=== PATIENT | male | born 1945 | race Caucasian/White ===

== ENCOUNTER 2016-11-28 12:02 | Emergency (ER) | payer OTHER, MEDICARE, BC ==
[~2016-11-28] VITALS: Ht 167.6 cm; Wt 79.4 kg
[~2016-11-28 12:02] MED LIST: ALLO300T2 PO; CITRTAB7 PO; CO Q100C9 PO; CRAN1000 PO; GLUC750T22 PO; MAGN250T13 PO; OXYC1SOL5 PO; RIVA10 PO; VITA100020 PO; ZOCO40TA PO
[2016-11-28 12:06] VITALS: BP 137/71; PULSE 66; RESP 16; TEMP 97.7; O2SAT 97
--- NOTE | 2016-11-28 12:18 | PD ---
HPI Chief Complaint: Laceration/Skin Injury Time Seen by Provider: 12:18 Travel History International Travel<30 days: No Contact w/Intl Traveler<30days: No Traveled to known affect area: No History of Present Illness HPI 71-year-old male with PMH of gout and OA presents to the ED by private car for evaluation after 5 foot fall from a ladder while working at the [facility] just before arrival. The patient states that the ladder fell to the left, so he grabbed on to the wooden post he was working on and slid to the ground. He states that a 3-4 inch splinter punctured his right forearm. He removed it on scene. He states that he fell to his knees in the grass after landing on his feet. He denies hitting his head or LOC. He has been ambulatory since the accident. On presentation he complains of 2/10 pain in the right forearm. Denies headache, dizziness, chest pain, shortness of breath, abdominal pain, nausea, vomiting, back pain, numbness, tingling, weakness, limitations to range of motion of the extremities. He takes an aspirin daily. NKDA. PFSH Past Medical History Hx Anticoagulant Therapy: Yes (81mg asa) Cancer: No Cardiovascular Problems: Yes (quijano at age 42) Diabetes: No Endocrine: No Genitourinary: No Hepatitis: No Hiatal Hernia: No Immune Disorder: No Musculoskeletal: Yes (ARTHRITIS) Neurologic: No Psychiatric: No Respiratory: No Thyroid Disease: No Past Surgical History Joint Replacement: Yes (bilateral KNEE) Pacemaker: No Social History Tobacco Use: No Substance Use: No Allergies-Medications (Allergen,Severity, Reaction): Coded Allergies: No Known Allergies (Unverified , 11/28/16) Reported Meds & Prescriptions Reported Meds & Active Scripts Active Keflex (Cephalexin) 250 Mg Cap 250 Mg PO Q6H 10 Days Bactrim DS (Sulfamethoxazole-Trimethoprim) 800-160 Mg Tab 1 Tab PO BID Reported Simvastatin 20 Mg Tab 20 Mg PO DAILY Allopurinol 100 Mg Tab 100 Mg PO DAILY Aspirin Low Dose (Aspirin) 81 Mg Chew 81 Mg CHEW DAILY Review of Systems Except as stated in HPI: all other systems reviewed are Neg Physical Exam Narrative GENERAL: Well-nourished, well-developed white male in no acute distress. Sitting upright in the stretcher. SKIN: Warm and dry. There is a 1 cm punture wound on the right anterior forearm , ulnar aspect. There is a subcentimeter puncture wound on the right anterior forearm, radial aspect. No visible FB. There are superficial abrasions of the left elbow. There is a linear superficial abrasion of the right anterior thigh. Well-healed surgical scars on bilateral anterior knees. HEAD: Normocephalic. Atraumatic. No raccoon eyes or long sign. No tenderness to palpation of the skull. No bony step-offs. No malocclusion of the teeth. EYES: No scleral icterus. No injection or drainage. PERRLA. EOMI. ENT: Pearly simpson tympanic membrane is bilaterally. Nasal mucosa is moist. Oropharynx without erythema, edema or exudate. NECK: Supple, trachea midline. No JVD or lymphadenopathy. No midline tenderness to palpation. Patient retains full, active, painless range of motion of the neck. CARDIOVASCULAR: Regular rate and rhythm without murmurs, gallops, or rubs. 2+ DP and radial pulses bilaterally. RESPIRATORY: Breath sounds clear and equal bilaterally. No accessory muscle use. GASTROINTESTINAL: Abdomen soft, non-tender, nondistended. + Bowel sounds MUSCULOSKELETAL: No cyanosis, or edema. Right knee flexes to approximately 35 . Patient states this is his normal. No tenderness to palpation or limitations to range of motion of the joints of the upper and lower extremities bilaterally. NEUROLOGICAL: Awake and alert. Cranial nerves II through XII intact. Motor and sensory grossly within normal limits. 5/5 muscle strength in all muscle groups. Normal speech. BACK: Nontender without obvious deformity. No CVA tenderness. No midline tenderness. Data Data Last Documented VS Vital Signs Date Time Temp Pulse Resp B/P Pulse Ox O2 Delivery O2 Flow Rate FiO2 11/28/16 12:06 97.7 66 16 137/71 97 Orders Forearm (2vws) (11/28/16 12:22) Ice/Cold Pack (11/28/16 12:22) Tetanus/Diphtheria Tox Adult (Tetanus/Di (11/28/16 12:30) Lidocai-Epi 1%-1:100,000 Inj (Xylocaine- (11/28/16 12:30) MDM Medical Decision Making Medical Screen Exam Complete: Yes Emergency Medical Condition: Yes Differential Diagnosis Puncture versus laceration versus abrasion versus foreign body versus other Narrative Course 71-year-old male with PMH of gout and OA presents to the ED by private car for evaluation after 5 foot fall from a ladder just before arrival. The patient states that the ladder fell to the left, so he grabbed on to the wooden post he was working on and slid to the ground. He states that a 3-4 inch splinter punctured his right forearm. He removed it on scene. He states that he fell to his knees in the grass after landing on his feet. He denies hitting his head or LOC. He has been ambulatory since the accident. On presentation he complains of 2/10 pain in the right forearm. Denies headache, dizziness, chest pain, shortness of breath, abdominal pain, nausea, vomiting, back pain, numbness, tingling, weakness, limitations to range of motion of the extremities. Vitals reviewed. Physical exam reveals an alert white male in no acute distress. There are several superficial abrasions over the skin surface. The right forearm has a 1 cm puncture wound on the anterior ulnar aspect and a subcentimeter puncture wound on the anterior radial aspect. Physical exam is otherwise reassuring. X-rays reveal no foreign body or bony injury per radiology read. Wound exploration and foreign body removal was performed. Please see my procedure note for details. The patient's wounds were cleaned and dressed by the nurse. The patient was provided with prescriptions for Bactrim and Keflex. He is instructed to keep the wounds clean, dry and covered , monitor for signs of infection. Rest, ice, elevate the right knee as needed, follow up with the primary care provider. We discussed reasons to return to the ED and signs of infection. The patient indicated understanding of the instructions and is agreeable to the care plan. The patient is stable and discharged home. Procedures Procedure Narrative Wound exploration/FB removal: The area of the laceration was prepped with Betadine. The wound was copiously irrigated and explored. A 1cm x 1mm wooden splinter was removed from the radial aspect wound. A 16 gauge jelco was used to irrigate the wound tract. The wound was irrigated with ~ 1 L NS without evidence of additional foreign body, tendon injury or neurovascular injury. A sterile dressing was applied. The patient was advised to keep the dressing clean and dry. Patient tolerated the procedure well. Diagnosis Primary Impression: Puncture wound of right forearm Qualified Code: S51.831A - Puncture wound of right forearm, initial encounter Additional Impressions: Retained wood splinter History of retained foreign body fully removed Referrals: Primary Care Physician Patient Instructions: General Instructions, Puncture Wound (ED) Additional Instructions: Rest, hydrate. Do not change the dressing for 24 hours. You may shower normally. Do not submerge the wound. No baths, no swimming x 7 days. After bathing pat of wound dry. Allow the wound to air dry for 10-15 minutes. Apply a thin layer of antibiotic ointment and a clean, dry dressing. Take the antibiotics as they are prescribed, even if your symptoms resolve. Utilize [id number] pain medications, as described on the label, as needed. Follow-up with your primary care provider this week. Return to the ED for any urgent or emergent medical condition. Med/Other Pt SpecificInfo: Prescription(s) given Scripts Cephalexin (Keflex)250 Mg [id number] Mg PO Q6H 10 Days Ref 0 Prov:Wood Nair MD 11/28/16 Sulfamethoxazole-Trimethoprim (Bactrim DS)800-160 Mg Tab1 Tab PO BID #14 TAB Ref 0 Prov:Wood Nair MD 11/28/16 Disposition: 01 DISCHARGE HOME Condition: Stable Sonal Smallwood Nov 28, 2016 12:18
[2016-11-28] MEDS ORDERED: SIMV20TA PO (12:19)
[2016-11-28] MEDS ORDERED: ASPI81CH37 CHEW (12:19)
[2016-11-28] MEDS ORDERED: ALLO100T PO (12:19)
[2016-11-28] MEDS ORDERED: TETANUS/DIPHTHERIA TOXOID ADULT 0.5 ML VIAL IM ONE (12:30)
[2016-11-28] MEDS ORDERED: LIDOCAINE 1%/EPINEPHrine 1:100,000 SOLN 20 ML VIAL INFIL ONE (12:30)
--- NOTE | 2016-11-28 12:37 | RADHPO ---
EXAM DATE/TIME: 11/28/2016 12:23 [facility] COMPARISON: No previous studies available for comparison. INDICATIONS : Right forearm pain and laceration; fell off ladder. MEDICAL HISTORY : None. SURGICAL HISTORY : None. ENCOUNTER: Initial ACUITY: 1 day PAIN SCORE: 3/10 LOCATION: Right lateral Forearm FINDINGS: AP and lateral views of the right forearm demonstrate no fracture or dislocation. Mineralization is w ithin normal limits. There is degenerative change at the radiocarpal joint and an enthesophyte is pre sent on the olecranon. There is mild focal soft tissue swelling along the radial aspect of the distal forearm. No radiopaque foreign body is seen. There is severe arterial vascular calcification. CONCLUSION: 1. Focal soft tissue swelling along the radial aspect of the distal forearm. No fracture is identifie d. 2. Severe arterial vascular calcification. Bernabe Palencia MD on November 28, 2016 at 12:34 Board Certified Radiologist. This report was verified electronically.
[2016-11-28] MEDS ORDERED: CEPH-459 PO (12:58)
[2016-11-28] MEDS ORDERED: BACT800T5 PO (12:58)
== END 2016-11-28 13:21 | disposition home or self-care (01) ==
LOC: PHEFT 12:02
DX: S51.831A Puncture wound without foreign body of right forearm, initial encounter (principal); S50.312A Abrasion of left elbow, initial encounter; Z79.82 Long term (current) use of aspirin; Z23 Encounter for immunization; W11.XXXA Fall on and from ladder, initial encounter; W45.8XXA Other foreign body or object entering through skin, initial encounter; Y93.H3 Activity, building and construction; Y92.29 Other specified public building as the place of occurrence of the external cause; Y99.0 Civilian activity done for income or pay
CPT/HCPCS: 73090; 90471; 90714